=== PATIENT | male | born 1960 | race Caucasian/White ===

== ENCOUNTER 2019-11-28 00:42 | Emergency (ER) | payer BC ==
[~2019-11-28] VITALS: Ht 167.6 cm; Wt 79.4 kg
--- NOTE | 2019-11-28 00:48 | NUR ---
Arrival Patient arrived to ED room 3 via wheelchair. When calling patient back from waiting room, patient was found sitting on floor vomiting. Patient assisted to wheelchair and transported to room. Patient placed in hospital gown. Denies chest discomfort. C/O severe abd pain that began two hours [employer]. When asked to describe the pain, patient states "It just feels like abd pain". Patient diaphoretic and cool to touch. Patient moaning and unable to lie still in bed. 18G IV initiated to R AC with no complications. Dr. Haney notified of patient arrival. 1 L NS initiated wide open and 4mg of zofran IV administered at this time per Dr. Haney. Patient placed on bedside and streetsweeper operator
[2019-11-28] MEDS ORDERED: ZOFRAN ONE ×2 (01:05→01:31)
[2019-11-28] MEDS ORDERED: NS 1000ML 1,000 ML ONE (01:05)
[2019-11-28 01:13] VITALS: BP 127/81
--- NOTE | 2019-11-28 01:17 | ER.PDOC ---
General Chief Complaint: Abdomen Pain Stated Complaint: ABD PAIN,VOMITING Time seen by MD: 01:16 Source: patient Exam Limitations: no limitations History of Present Illness Initial Comments 59 Y/O MALE PATIENT WORKS A AIRLINE MANAGER, LIVES IN [facility] [place], STARTED HAVING CRAMPING ABD PAIN WITH N/V X 4 HRS AGO. PAIN COMES AND GOES, NO FEVER, NO CHEST PAIN, NO SOB, POSS ATE BAD FOOD. NO OTHER COMPLAINTS. Timing/Duration: 4-6 hours Severity/Quality: severe, cramping Radiation: RUQ, LUQ, RLQ, LLQ, epigastric Associated Symptoms: nausea/vomiting Exacerbated by: nothing Relieved By: nothing Allergies: Coded Allergies: No Known Drug Allergies (Verified Allergy, Unknown, 11/28/19) Vital Signs First Vital Signs Date Time Temp Pulse Resp B/P (MAP) Pulse Ox O2 Delivery O2 Flow Rate FiO2 11/28/19 01:13 97.4 57 24 97 11/28/19 01:13 127/81 (96) Room Air 11/28/19 02:55 2.00 Last Vital Signs Date Time Temp Pulse Resp B/P (MAP) Pulse Ox O2 Delivery O2 Flow Rate FiO2 11/28/19 02:55 70 18 109/71 (84) 93 Nasal Canula 2.00 11/28/19 01:13 97.4 Past Medical History Medical History: other Surgical History: other Family History Significant Family History: no pertinent family hx Social History Alcohol Use: none Drug Use: none Reviewed Nursing Reviewed: Vital Signs, Abn. Noted, Nursing Assessment Constitutional: no symptoms reported EENTM: no symptoms reported Respiratory: no symptoms reported Cardiovascular: no symptoms reported Gastrointestinal: abdominal pain, nausea, vomiting Genitourinary: no symptoms reported Musculoskeletal: no symptoms reported Skin: no symptoms reported Psychiatric/Neurological: no symptoms reported Endocrine: no symptoms reported Hematologic/Lymphatic: no symptoms reported Physical Exam General Appearance: WD/WN, Anxious, Moderate Distress HEENT: PERRL/EOMI, Normal ENT Inspection, TMs Normal, Pharynx Normal Neck: Non-Tender, Full Range of Motion, Supple, Normal Inspection Respiratory: chest non-tender, lungs clear, normal breath sounds, no respiratory distress, no accessory muscle use Cardiovascular: Normal Peripheral Pulses, Regular Rate, Rhythm, No Edema, No Gallop, No JVD, No Murmur Gastrointestinal: Normal Bowel Sounds, No Organomegaly, Tenderness, Other Back: Normal Inspection, No CVA Tenderness, No Vertebral Tenderness Extremities: Normal Range of Motion, Non-Tender, Normal Inspection, No Pedal Edema, No Calf Tenderness, Normal Capillary Refill, Pelvis Stable Neurologic/Psychiatric: digital editor II-XII NML as Tested, No Motor/Sensory Deficits, Alert, Normal Mood/Affect, Oriented x 3 Skin: Normal Color, Warm/Dry Lymphatic: No Adenopathy Comments ABD---TENDER TO PALP ALL ABD --MOST MID TO LEFT LOWER ABD, NO R/CVA/G, EQUAL FEMORAL PULSES, NO MASS. Results/Orders Results/Orders Orders - ANA MCDERMOTT DO Morphine Sulfate (Morphine Sulfate) (11/28/19 01:21) Cbc With Auto Diff (11/28/19 01:20) Comprehensive Metabolic Panel (11/28/19 01:20) Lipase (11/28/19 01:20) PT (11/28/19 01:20) Ct Abd/Pel With Iv Contrast (11/28/19 01:20) Partial Thromboplastin Time. (11/28/19 01:20) Urinalysis (11/28/19 01:20) Saline Lock (11/28/19 01:20) Drug Scrn Med W Confirmation (11/28/19 01:20) Ondansetron Hcl/Pf (Zofran) (11/28/19 01:30) Morphine Sulfate (Morphine Sulfate) (11/28/19 01:30) Ondansetron Hcl/Pf (Zofran) (11/28/19 01:31) Opiate Confirmation Ur (11/28/19 01:55) Vital Signs Date Time Temp Pulse Resp B/P (MAP) Pulse Ox O2 Delivery O2 Flow Rate FiO2 11/28/19 02:55 70 18 109/71 (84) 93 Nasal Canula 2.00 11/28/19 01:13 97.4 57 24 127/81 (96) 97 Room Air 11/28/19 01:13 97.4 57 24 11/28/19 01:13 97.4 57 24 97 Administered Medications Medications (Trade) Dose Ordered Sig/Taylor Route PRN Reason Start Time Stop Time Status Last Admin Dose Admin Morphine Sulfate (Morphine Sulfate) 4 mg STAT PRN IV PAIN 7 - 10 11/28/19 01:30 12/28/19 01:29 11/28/19 01:28 4 MG Ondansetron HCl (Zofran) 8 mg Q4H PRN IV NAUSEA / VOMITING 11/28/19 01:30 12/28/19 01:29 11/28/19 00:50 8 MG Laboratory Tests Test 11/28/19 01:20 11/28/19 01:55 White Blood Count 18.0 10^3/uL (4.5-11.0) H Red Blood Count 5.00 10^6/uL (4.50-5.90) Hemoglobin 16.1 g/dL (13.9-16.3) Hematocrit 46.1 % (37.0-53.0) Mean Corpuscular Volume 92.2 fL (78-100) Mean Corpuscular Hemoglobin 32.2 pg (26-34) Mean Corpuscular Hemoglobin Concent 34.9 g/dL (33-36.5) Red Cell Distribution Width 12.0 % (11.5-14.5) Platelet Count 384 10^3/uL (150-400) Mean Platelet Volume 10.8 fL (7.8-11.0) Neutrophils (%) (Auto) 82.4 % (41.0-85.0) Lymphocytes (%) (Auto) 10.3 % (24.0-44.0) L Monocytes (%) (Auto) 5.7 % (5.0-12.0) Neutrophils # (Auto) 14.9 10^3/uL (1.8-7.7) H Lymphocytes # (Auto) 1.86 10^3/uL1 (1.0-4.8) Monocytes # (Auto) 1.0 10^3/uL (0.3-0.8) H Absolute Immature Granulocyte (auto 0.03 10^3 u/L (0-2) Absolute Eosinophils (auto) 0.2 10^3/uL (0.0-0.2) Immature Granulocytes % 0.20 % (0.00-0.50) Eosinophils % 1.1 % (0.0-5.0) Basophils % 0.3 % (0.0-0.2) H Basophils # 0.1 10^3/uL (0.0-0.1) Prothrombin Time 9.9 SEC (9.3-11.3) Prothrombin Time INR (Non-Therap) 1.0 Activated Partial Thromboplast Time 21.5 SEC (24.67-30.72) Sodium Level 139 mmol/L (132-145) Potassium Level 4.0 mmol/L (3.6-5.2) Chloride Level 103.0 mmol/L (96-109) Carbon Dioxide Level 24.0 mmol/L (20.0-32) Anion Gap 16.0 Blood Urea Nitrogen 18 mg/dL (7-18) Creatinine 1.04 mg/dL (0.59-1.40) Estimated GFR () 88.4 (>/=60) Est GFR (CKD-EPI)(Non-Afr Macanese) 73.1 (>/=60) BUN/Creatinine Ratio 17.0 Glucose Level 135 mg/dL (70-110) H Calcium Level 9.8 mg/dL (8.4-10.5) Total Bilirubin 0.8 mg/dL (0.2-1.0) Aspartate Amino Transferase (AST) 21 U/L (0-35) Alanine Aminotransferase (ALT) 39 U/L (12-78) Alkaline Phosphatase 68 U/L (50-136) Total Protein 7.7 g/dL (6.4-8.2) Albumin 4.1 g/dL (3.4-5.0) Globulin 3.6 Lipase 88 U/L (114-286) L Urine Collection Type VOID Urine Color YELLOW (YELLOW) Urine Appearance CLEAR (CLEAR) Urine Bilirubin NEGATIVE MG/DL (NEGATIVE) Urine Ketones 15 mg/dL (NEGATIVE) H Urine Specific Johnson 1.010 (1.005-1.035) Urine pH 9 (5.0-6.0) Urine Protein NEGATIVE (NEGATIVE) Urine Urobilinogen NORMAL (NEGATIVE) Urine Nitrate NEGATIVE (NEGATAIVE) Urine Leukocyte Esterase NEGATIVE (NEGATIVE) Urine Blood NEGATIVE (NEGATIVE) Urine Glucose NORMAL (NEGATIVE) Urine Opiates Screen PRESUMPTIVE POSITIVE Urine Methadone Screen NEGATIVE (c/o300ng/mL) Urine Barbiturates Screen NEGATIVE (c/o200ng/mL) Urine Phencyclidine Screen NEGATIVE (c/o 25ng/mL) Ur Amphetamine/Methamphetamine NEGATIVE (ta2071ex/mL) Urine MDMA Screen (Ecstasy) NEGATIVE (c/o300ng/mL) Urine Benzodiazepines Screen PRESUMPTIVE POSITIVE Urine Cocaine Metabolite Screen NEGATIVE (c/o300ng/mL) Ur Tetrahydrocannabinol (THC) Scrn NEGATIVE (c/o 50ng/mL) Progress Progress 0300---AT REEVAL ABD PAIN GONE. ABD + BS, NONTENDER TO PALP ALL 4 Q, NO R/CVA/G. DIFF DX IN DETAIL WITH PATIENT. LABS AND CT RESULTS DISCUSSED. PATIENT STATES HE HAS NO PAIN OR NAUSEA AMD DOES NOT WANT TO BE ADMITTED. DIET AND FOLLOW UP WHEN HOME DISCUSSED. PATIENT DOES HAVE THE CAPACITY TO UNDERSTAND. Course Vitals & review Data Vital Sign - Last 24 Hours 11/28/19 11/28/19 11/28/19 11/28/19 01:13 01:13 01:13 02:55 Temp 97.4 97.4 97.4 Pulse 57 57 57 70 Resp 24 24 24 18 B/P (MAP) 127/81 (96) 109/71 (84) Pulse Ox 97 97 93 O2 Delivery Room Air Nasal Canula O2 Flow Rate 2.00 Laboratory Tests Test 11/28/19 01:20 11/28/19 01:55 White Blood Count 18.0 10^3/uL Red Blood Count 5.00 10^6/uL Hemoglobin 16.1 g/dL Hematocrit 46.1 % Mean Corpuscular Volume 92.2 fL Mean Corpuscular Hemoglobin 32.2 pg Mean Corpuscular Hemoglobin Concent 34.9 g/dL Red Cell Distribution Width 12.0 % Platelet Count 384 10^3/uL Mean Platelet Volume 10.8 fL Neutrophils (%) (Auto) 82.4 % Lymphocytes (%) (Auto) 10.3 % Monocytes (%) (Auto) 5.7 % Neutrophils # (Auto) 14.9 10^3/uL Lymphocytes # (Auto) 1.86 10^3/uL1 Monocytes # (Auto) 1.0 10^3/uL Absolute Immature Granulocyte (auto 0.03 10^3 u/L Absolute Eosinophils (auto) 0.2 10^3/uL Immature Granulocytes % 0.20 % Eosinophils % 1.1 % Basophils % 0.3 % Basophils # 0.1 10^3/uL Prothrombin Time 9.9 SEC Prothrombin Time INR (Non-Therap) 1.0 Activated Partial Thromboplast Time 21.5 SEC Sodium Level 139 mmol/L Potassium Level 4.0 mmol/L Chloride Level 103.0 mmol/L Carbon Dioxide Level 24.0 mmol/L Anion Gap 16.0 Blood Urea Nitrogen 18 mg/dL Creatinine 1.04 mg/dL Estimated GFR () 88.4 Est GFR (CKD-EPI)(Non-Afr Macanese) 73.1 BUN/Creatinine Ratio 17.0 Glucose Level 135 mg/dL Calcium Level 9.8 mg/dL Total Bilirubin 0.8 mg/dL Aspartate Amino Transf (AST/SGOT) 21 U/L Alanine Aminotransferase (ALT/SGPT) 39 U/L Alkaline Phosphatase 68 U/L Total Protein 7.7 g/dL Albumin 4.1 g/dL Globulin 3.6 Lipase 88 U/L Urine Collection Type VOID Urine Color YELLOW Urine Appearance CLEAR Urine Bilirubin NEGATIVE MG/DL Urine Ketones 15 mg/dL Urine Specific Johnson 1.010 Urine pH 9 Urine Protein NEGATIVE Urine Urobilinogen NORMAL Urine Nitrate NEGATIVE Urine Leukocyte Esterase NEGATIVE Urine Blood NEGATIVE Urine Glucose NORMAL Urine Opiates Screen PRESUMPTIVE POSITIVE Urine Methadone Screen NEGATIVE Urine Barbiturates Screen NEGATIVE Urine Phencyclidine Screen NEGATIVE Ur Amphetamine/Methamphetamine NEGATIVE Urine MDMA Screen (Ecstasy) NEGATIVE Urine Benzodiazepines Screen PRESUMPTIVE POSITIVE Urine Cocaine Metabolite Screen NEGATIVE Ur Tetrahydrocannabinol (THC) Scrn NEGATIVE Current Medications Medications (Trade) Dose Ordered Sig/Taylor PRN Reason Start Time Stop Time Status Last Admin Morphine Sulfate (Morphine Sulfate) 4 mg STAT PRN PAIN 7 - 10 11/28/19 01:30 12/28/19 01:29 11/28/19 01:28 Ondansetron HCl (Zofran) 8 mg Q4H PRN NAUSEA / VOMITING 11/28/19 01:30 12/28/19 01:29 11/28/19 00:50 O2 Sat by Pulse Oximetry: 97 Departure Time of Disposition: 03:14 Disposition: 01 HOME, SELF-CARE Impression: Primary Impression: Enteritis Additional Impression: Vomiting Condition: Stable Patient Instructions: Abdominal Pain Referrals: PCP,UNKNOWN (PCP) PRIMARY CARE PROVIDER Additional Instructions: TO ED IF WORSE OR NO BETTER, DRINK PLENTY WATER, BLAND DIET, RX BENTYL, ZOFRAN, FLAGYL, CIPRO, FOLLOW UP WITH YOUR DR WHEN HOME, COPY OF LABS AND CT REPORT TO PATIENT. Duration or Time Spent with Pa: 25 MIN Problem Qualifiers ANA MCDERMOTT DO Nov 28, 2019 01:17
[2019-11-28] MEDS ORDERED: MORPHINE SULFATE ONE (01:21)
--- NOTE | 2019-11-28 01:28 | NUR ---
Patient educated on morphine prior to administration. Patient verbalizes understanding and acknowledges medication being administered. No questions or concerns at this time from patient
[2019-11-28] MEDS ORDERED: MORPHINE SULFATE IV PRN (01:30)
[2019-11-28] MEDS ORDERED: ZOFRAN IV PRN (01:30)
--- NOTE | 2019-11-28 01:34 | NUR ---
Another 4mg of Zofran administered IV at this time. Patient states pain level is 5/10 and that abd pain increases when sitting up.
[2019-11-28 01:36] LABS: BASOPHIL # 0.1 10^3/uL (0.0-0.1); BASOPHIL % 0.3 % (0.0-0.2); EOSINOPHIL # 0.2 10^3/uL (0.0-0.2); EOSINOPHIL % 1.1 % (0.0-5.0); LYMPHOCYTES # 1.86 10^3/uL1 (1.0-4.8); LYMPHOCYTES % 10.3 % (24.0-44.0); MEAN CORP HGB 32.2 pg (26-34); MONOCYTES % 5.7 % (5.0-12.0); NEUTROPHIL # 14.9 10^3/uL (1.8-7.7); NEUTROPHILS % 82.4 % (41.0-85.0); PLATELET COUNT 384 10^3/uL (150-400)
[2019-11-28 01:49] LABS: CALCIUM 9.8 mg/dL (8.4-10.5)
--- NOTE | 2019-11-28 01:52 | NUR ---
Pain level 3/10 at this time to ABD. Patient alert and talking with no signs of distress noted at this time. Patient able to lie still in bed with no difficulties. 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
[2019-11-28 02:05] LABS: BILIRUBIN,URINE NEGATIVE (NEGATIVE); UROBILINOGEN,URINE NORMAL (NEGATIVE)
[2019-11-28 02:07] LABS: APPEARANCE,URINE CLEAR (CLEAR); UA COLOR YELLOW (YELLOW)
[2019-11-28 02:18] LABS: CODEINE GC/MS CONF N ng/mL
--- NOTE | 2019-11-28 02:20 | NUR ---
Patient denies any abd pain at this time
--- NOTE | 2019-11-28 02:28 | NUR ---
Patient in bed asleep with no signs of distress noted. O2sat 86% on RA. Patient placed on 2lpm via nc. O2sat 94% at this time
--- NOTE | 2019-11-28 02:50 | DIREP ---
PROCEDURE:CT ABDOMEN/PELVIS W/ CONTRAST COMPARISON:None. INDICATIONS:ABD PAIN, VOMITING, RLQ PAIN TECHNIQUE:Axial images were created through the abdomen and pelvis with non-ionic intravenous contrast material. No oral contrast was administered. Sagittal and coronal reconstructions were performed from source images. FINDINGS: LUNG BASES:Normal. No visible pulmonary or pleural disease. LIVER:Normal. No significant liver lesions are identified. BILIARY:Normal. No visible dilatation or calcification. PANCREAS:Normal. No lesion, fluid collection, ductal dilatation, or atrophy. SPLEEN:Normal. No enlargement or focal lesion. ADRENALS:Normal. No mass or enlargement. URINARY TRACT:Normal. No focal lesions or hydronephrosis. AORTA/VASCULAR:Normal. No aneurysm. RETROPERITONEUM:Normal. No mass or adenopathy. BOWEL/MESENTERY:The appendix is visualized and appears normal. There are multiple mildly distended, fluid-filled loops of small bowel in the left mid and upper abdomen. There is mild diffuse small bowel wall thickening, most pronounced in several loops in the right ventral abdomen perhaps causing partial obstruction at this level. Distal small bowel loops are relatively decompressed but a sharp point of transition is not clearly evident. Minimal hazy mesenteric edema is identified surrounding several mildly distended loops of mid jejunum. This is best seen on image 42 series 2 ABDOMINAL WALL:Normal. No mass or hernia. PELVIC ORGANS:Normal. No visible mass. Pelvic organs appropriate for patient age. BONES:Normal for age. No bony lesion or acute fracture. OTHER:Negative. CONCLUSION: 1. Small bowel wall thickening seen in the right ventral jejunum. There are mildly distended fluid-filled loops of small bowel proximal to the area of bowel wall thickening. Findings are suspicious for enteritis although early bowel obstruction would be difficult to entirely exclude. There is minimal mesenteric edema adjacent to mildly distended loops of jejunum that could be related to more proximal enteritis is well. 2. Normal appendix. Dictated by: Gianluca Hidalgo MD on 11/28/2019 at 02:42 AM
[2019-11-28 02:55] VITALS: BP 109/71
[2019-11-28 04:16] VITALS: BP 105/58
--- NOTE | 2019-11-28 04:16 | NUR ---
Patient in bed asleep. Respirations even and non labored. No signs of distress noted
[2019-11-28 05:28] VITALS: BP 109/65
--- NOTE | 2019-11-28 05:28 | NUR ---
IV removed at discharge with no complications. Patient alert, ambulatory and stable at time of discharge with no complaints or concerns at this time
== END 2019-11-28 05:30 | disposition home or self-care (01) ==
LOC: ER 00:42
DX: K52.9 Noninfective gastroenteritis and colitis, unspecified (principal); Z79.899 Other long term (current) drug therapy
CPT/HCPCS: 36415; 74177; 80053; 80307; 80346; 81002; 83690; 85025; 85610; 85730; 96374; 96375; 99285; G0480; J2270; J2405 ×2; J7030; Q9965